=== PATIENT | female | born 2000 | race Caucasian/White ===

== ENCOUNTER → 2024-09-01 07:52 | Outpatient (REF) | payer BC, SELFPAY | LOC: PNTC 07:52 | PROVIDERS: ATTENDING PHYSICIAN Obstetrics & Gynecology | DX: Z36.0 Encounter for antenatal screening for chromosomal anomalies (principal); Z36.82 Encounter for antenatal screening for nuchal translucency | CPT/HCPCS: 76801; 76813 ==

== ENCOUNTER → 2024-09-22 07:04 | Outpatient (REF) | payer BC, SELFPAY | LOC: PNTC 07:04 | PROVIDERS: ATTENDING PHYSICIAN Obstetrics & Gynecology | DX: O99.612 Diseases of the digestive system complicating pregnancy, second trimester (principal) | CPT/HCPCS: 76805 ==

== ENCOUNTER → 2024-10-20 07:05 | Outpatient (REF) | payer BC, SELFPAY | LOC: PNTC 07:05 | PROVIDERS: ATTENDING PHYSICIAN Obstetrics & Gynecology | DX: K50.90 Crohn's disease, unspecified, without complications (principal) | CPT/HCPCS: 76811 ==

== ENCOUNTER → 2024-12-05 16:07 | Outpatient (REF) | payer BC, SELFPAY | LOC: PNTC 16:07 | PROVIDERS: ATTENDING PHYSICIAN Obstetrics & Gynecology | DX: O99.612 Diseases of the digestive system complicating pregnancy, second trimester (principal) | CPT/HCPCS: 76816 ==

== ENCOUNTER → 2025-01-02 15:58 | Outpatient (REF) | payer BC, SELFPAY | LOC: PNTC 15:58 | PROVIDERS: ATTENDING PHYSICIAN Obstetrics & Gynecology | DX: K50.019 Crohn's disease of small intestine with unspecified complications (principal); O35.5XX0 Maternal care for (suspected) damage to fetus by drugs, not applicable or unspecified | CPT/HCPCS: 76816 ==

== ENCOUNTER → 2025-01-30 16:18 | Outpatient (REF) | payer BC, SELFPAY | LOC: PNTC 16:18 | PROVIDERS: ATTENDING PHYSICIAN Obstetrics & Gynecology | DX: K50.00 Crohn's disease of small intestine without complications (principal); O99.619 Diseases of the digestive system complicating pregnancy, unspecified trimester | CPT/HCPCS: 76816 ==

== ENCOUNTER → 2025-02-27 16:12 | Outpatient (REF) | payer BC, SELFPAY | LOC: PNTC 16:12 | PROVIDERS: ATTENDING PHYSICIAN Student in an Organized Health Care Education/Training Program | DX: K50.00 Crohn's disease of small intestine without complications (principal) | CPT/HCPCS: 76816 ==

== ENCOUNTER 2025-03-01 18:27 | Inpatient (IN) | payer BC, SELFPAY ==
[2025-03-01 17:27] VITALS: BP 151/95; BMI 27.1
[2025-03-01 18:09] LABS: % Basophils 0.4 % (0-2); % Eosinophils 0.7 % (0-6); % Immature Granulocytes 0.9 % (0-0.5); % Lymphocytes 25.2 % (20.5-51.1); % Monocytes 9.4 % (1.7-9.3); % Neutrophils 63.4 % (42.2-75.2); Absolute Eosinophils 0.1 10^3/uL (0-0.7); Absolute Immature Granulocytes 0.1 10^3/uL (0-0.05); Absolute Lymphocytes 2.9 10^3/uL (1.2-3.4); Absolute Monocytes 1.1 10^3/uL (0.1-0.6); Absolute Neutrophils 7.2 10^3/uL (1.4-6.5); Hematocrit 35.8 % (37.0-47.0); Hemoglobin 11.9 g/dL (12.0-16.0); Mean Corp Hgb Conc. 33.2 g/dL (33.0-37.0); Mean Corpuscular Hgb 30.1 pg (27.0-31.0); Mean Corpuscular Volume 90.6 fL (81.0-99.0); Mean Platelet Volume 12.7 fL (7.4-10.4); Nucleated Red Blood Cells % 0 %; Platelet Count 161 10^3/uL (130-400); Red Blood Cell Count 3.95 10^6/uL (4.20-5.40); White Blood Cell Count 11.4 10^3/uL (4.8-10.8)
[2025-03-01 18:25] LABS: ALT (SGPT) 18 U/L (0-35); AST (SGOT) 27 U/L (14-36); Albumin 3.7 g/dl (3.5-5.0); Alkaline Phosphatase 203 U/L (38-126); Blood Urea Nitrogen 9 mg/dl (7-17); Calcium 9.5 mg/dl (8.4-10.2); Carbon Dioxide 22 mmol/L (22-30); Chloride 111 mmol/L (98-107); Estimated Creatinine Clearance > 125 ml/min; Glucose 69 mg/dl (70-99); Potassium 4.1 mmol/L (3.5-5.1); Sodium 137 mmol/L (135-145); Total Bilirubin 0.4 mg/dl (0.2-1.3); eGFR > 60.00
[2025-03-01 18:34] LABS: Urine Albumin 4+ (Neg - Trace); Urine Bilirubin Negative (Negative); Urine Character Clear (Clear); Urine Color Yellow; Urine Glucose Negative (Negative); Urine Ketone Negative (Negative); Urine Leukocyte Negative (Negative); Urine Nitrite Negative (Negative); Urine Occult Blood 1+ (Negative); Urine Urobilinogen Negative (Neg - 1+)
[2025-03-01 18:47] LABS: Urine Bacteria Many (Negative); Urine Squamous Cell 16-20 /LPF (Few)
[2025-03-01 19:49] LABS: Protein/creatinine Ratio 9.8; Urine Protein 1490 mg/dl
[2025-03-01] MEDS: TRANDATE 200 MG PO (20:54)
[2025-03-01] MEDS: CYTOTEC 50 MICROGRAM PO (20:55)
[2025-03-01] MEDS: PRENATAL PLUS PO (23:08)
[2025-03-02] MEDS: CYTOTEC 50 MICROGRAM PO (00:58)
[2025-03-02] MEDS: LR 1000 IV ×2 (02:50→09:27)
[2025-03-02 05:39] LABS: Hematocrit 32.3 % (37.0-47.0); Hemoglobin 10.8 g/dL (12.0-16.0); Mean Corp Hgb Conc. 33.4 g/dL (33.0-37.0); Mean Corpuscular Hgb 30.6 pg (27.0-31.0); Mean Corpuscular Volume 91.5 fL (81.0-99.0); Mean Platelet Volume 12.8 fL (7.4-10.4); Platelet Count 141 10^3/uL (130-400); Red Blood Cell Count 3.53 10^6/uL (4.20-5.40); Red Cell Dist. Width 13.2 % (11.5-14.5); White Blood Cell Count 10.8 10^3/uL (4.8-10.8)
[2025-03-02 06:03] LABS: ALT (SGPT) 16 U/L (0-35); AST (SGOT) 23 U/L (14-36); Albumin 3.3 g/dl (3.5-5.0); Alkaline Phosphatase 177 U/L (38-126); Blood Urea Nitrogen 9 mg/dl (7-17); Calcium 8.8 mg/dl (8.4-10.2); Carbon Dioxide 20 mmol/L (22-30); Chloride 110 mmol/L (98-107); Estimated Creatinine Clearance 115 ml/min; Glucose 77 mg/dl (70-99); Sodium 136 mmol/L (135-145); Total Bilirubin 0.3 mg/dl (0.2-1.3); Total Protein 6.3 g/dl (6.3-8.2); eGFR > 60.00
[2025-03-02] MEDS: CYTOTEC PO ×3 (06:28→16:05)
[2025-03-02] MEDS: TRANDATE 200 MG PO ×2 (07:41→19:49)
[2025-03-02] MEDS: PRENATAL PLUS 1 TABLET PO (07:41)
[2025-03-02] MEDS: ZOFRAN 4 MG IV (09:27)
[2025-03-02] MEDS: PITOCIN 30 UNITS/NSS 500 ML IV ×2 (09:28→20:25)
[2025-03-02] MEDS: ZYRTEC 10 MG PO (10:16)
[2025-03-02] MEDS: SUBLIMAZE 100 MCG EPIDURAL (16:14)
[2025-03-02] MEDS: FENTANYL/BUPIVACAINE 100 EPIDURAL (16:14)
[2025-03-03] MEDS: TYLENOL 650 MG PO ×3 (00:59→17:01)
[2025-03-03 03:36] LABS: Hematocrit 26.1 % (37.0-47.0); Hemoglobin 8.8 g/dL (12.0-16.0)
[2025-03-03] MEDS: SENOKOT-S 1 TABLET PO (08:25)
[2025-03-03] MEDS: TRANDATE 200 MG PO ×2 (08:25→20:19)
[2025-03-03] MEDS: FEOSOL 325 MG PO (08:25)
[2025-03-03] MEDS: PRENATAL PLUS 1 TABLET PO (08:26)
[2025-03-03 13:44] LABS: Syphilis/T. pallidum Ab Reflex Negative (Negative)
[2025-03-04] MEDS: TYLENOL 650 MG PO ×2 (00:22→08:03)
[2025-03-04] MEDS: PRENATAL PLUS 1 TABLET PO (08:03)
[2025-03-04] MEDS: TRANDATE 200 MG PO (08:03)
[2025-03-04] MEDS: SENOKOT-S 1 TABLET PO (08:04)
== END 2025-03-04 13:19 | disposition home or self-care (01) | DRG 807 ==
LOC: LDRP 18:27
PROVIDERS: Obstetrics & Gynecology; ADMITTING PHYSICIAN Obstetrics & Gynecology; FAMILY PHYSICIAN Nurse Practitioner Adult Health
PROC: 3E033VJ Introduction of Other Hormone into Peripheral Vein, Percutaneous Approach (ICD-10-PCS; 2025-03-01)
PROC: 10E0XZZ Delivery of Products of Conception, External Approach (ICD-10-PCS; 2025-03-02)
PROC: 0HQ9XZZ Repair Perineum Skin, External Approach (ICD-10-PCS; 2025-03-02)
PROC: 10907ZC Drainage of Amniotic Fluid, Therapeutic from Products of Conception, Via Natural or Artificial Opening (ICD-10-PCS; 2025-03-02)
DX: O14.04 Mild to moderate pre-eclampsia, complicating childbirth (principal); Z37.0 Single live birth; Z3A.39 39 weeks gestation of pregnancy; O70.0 First degree perineal laceration during delivery; O69.81X0 Labor and delivery complicated by cord around neck, without compression, not applicable or unspecified
CPT/HCPCS: 88307; 36415; 80053; 81003; 81015; 82570; 84156; 85014; 85018; 85025; 85027; 86780; 86850; 86900; 86901; 87086

== ENCOUNTER 2025-07-31 20:45 | Emergency (ER) | payer BC, SELFPAY ==
[2025-07-31 20:48] VITALS: BP 136/92
[2025-07-31 21:08] LABS: Hematocrit 39.0 % (37.0-47.0); Hemoglobin 12.5 g/dL (12.0-16.0); Mean Corp Hgb Conc. 32.1 g/dL (33.0-37.0); Mean Corpuscular Volume 84.2 fL (81.0-99.0); Nucleated Red Blood Cells % 0 %; Platelet Count 179 10^3/uL (130-400); Red Cell Dist. Width 14.6 % (11.5-14.5)
[2025-07-31 21:25] LABS: COVID-19 Antigen Negative (Negative)
[2025-07-31 21:31] LABS: HCG, Serum Qualitative Screen Negative
[2025-07-31 21:41] LABS: ALT (SGPT) 37 U/L (0-35); AST (SGOT) 34 U/L (14-36); Albumin 4.6 g/dl (3.5-5.0); Alkaline Phosphatase 93 U/L (38-126); Blood Urea Nitrogen 9 mg/dl (7-17); Calcium 8.8 mg/dl (8.4-10.2); Carbon Dioxide 25 mmol/L (22-30); Chloride 101 mmol/L (98-107); Glucose 102 mg/dl (70-99); Potassium 3.5 mmol/L (3.5-5.1); Sodium 136 mmol/L (135-145); Total Protein 7.6 g/dl (6.3-8.2); eGFR > 60.00
--- NOTE | 2025-07-31 22:42 | ED.GENMED ---
History of Present Illness
General
Chief Complaint: Cold/Flu/URI Symptoms
Source: patient
Time Seen by Provider: 07/31/25 22:02
History of Present Illness
History of Present Illness:
25-year-old female presents complaining of fever, chills, nausea, vomiting, congestion and facial pressure. Symptoms been present for the past few days. Patient has been taking Tylenol for her symptoms. Last dose was at 5 PM. Patient also
endorses a cough. She takes Humira for Crohn's disease. Patient was seen by her primary care provider and prescribed Augmentin today but she was unable to keep the antibiotic down. She denies any abdominal pain. She denies diarrhea. No recent
travel. Her significant other also has similar symptoms but to a lesser degree.
Phy Exam
Physical Exam
Physical Exam:
General: Awake, Alert, Oriented X3. Appears to feel somewhat unwell but in no distress and appears nontoxic
Vitals: Mildly tachycardic
Head: Atraumatic
Eyes: Pupils equal, EOMI
Throat: Airway intact, no exudates
Neck: Trachea midline
Lungs: Clear and equal b/l
Heart: Regular rate, no murmurs
Abd: Soft, Nontender, No pulsatile mass
Neuro: Nonfocal
Skin: Warm, dry, no rash
Extremities: pulses equal b/l, no edema
Sepsis
Sepsis Screening
Sepsis Assessment: Sepsis Ruled Out
Sepsis Screen
Sepsis Screen: Sepsis Ruled Out
Date: 08/01/25
Time: 01:24
Course
Orders/Labs/Results
Orders:
Orders
07/31/25 20:52
Test Result ONCE
07/31/25 20:59
CMP [Comprehensive Metabolic Panel] Urgent
COVID-19 Antigen Urgent
Source: Nasal Swab
Complete Blood Count/With Diff Urgent
HCG, Serum Qualitative Screen Urgent
Lactic Acid Urgent
Influenza A+B Rapid Molecular Urgent
ANGEL Source: Nasal Swab
Specimen Description:
07/31/25 22:35
0.9% Sodium Chloride 1000 ml [Nss] 1,000 ml IV BOLUS
Ondansetron Injectable [Zofran] 4 mg IV NOW STA
07/31/25 22:40
CR Chest - 2 Views Urgent
Comment:
Reason For Exam: fever, cough
07/31/25 22:47
Ketorolac [Toradol] 15 mg IV NOW STA
07/31/25 23:26
Acetaminophen [Tylenol] 650 mg PO NOW STA
08/01/25 00:11
Amoxicillin 875 mg/Clav 125 mg [Augmentin 875 mg/125 mg] 1 tablet PO NOW STA
Abnormal Lab Results
07/31/25
20:59
MCHC 32.1 L g/dL
(33.0-37.0)
RDW 14.6 H %
(11.5-14.5)
Absolute Monos (auto) 0.7 H 10^3/uL
(0.1-0.6)
Monocytes % 9.4 H %
(1.7-9.3)
Glucose 102 H mg/dl
(70-99)
ALT 37 H U/L
(0-35)
07/31/25 20:59
07/31/25 20:59
Vital Signs
Initial and Last Documented VS:
Initial Vital Signs
Temp Pulse Resp BP Pulse Ox
98.5 F 126 16 136/92 98
07/31/25 20:48 07/31/25 20:48 07/31/25 20:48 07/31/25 20:48 07/31/25 20:48
Last Documented Vital Signs
Temp Pulse Resp BP Pulse Ox
98.9 F 82 18 136/92 98
08/01/25 00:29 08/01/25 00:29 08/01/25 00:29 07/31/25 20:48 08/01/25 00:29
MDM/Problems Addressed
Differential Diagnosis Includes:
acute viral illness, bacterial sinusitis, pneumonia
MDM/Problems Addressed:
Patient presents with fever, facial/head congestion and fever. Labs here are reassuring. COVID and influenza test are negative. Chest x-ray reviewed by myself I do not see any obvious infiltrate. Patient was prescribed Augmentin for sinusitis
which I think is reasonable. She was given Zofran and IV fluids here and is feeling better. She is no longer nauseous. She tolerated dose of Augmentin here. Will discharge her with a prescription for Zofran and instructions to take the Augmentin
as prescribed.
*Radiology
Radiology exam reviewed: preliminary read by ED provider (No acute abnormalities on my review of the patient's chest x-ray)
*Pulse Oximetry
SaO2: 98
Oxygen Mode of Delivery: Room air
Patient hypoxic: no
*Critical Care Note
Total Time (30-74mins, 75-104mins- exclusive of procedures): Not Applicable
ED Attending Note
-
Portions of this chart may have been created with voice recognition software.� Occasional wrong word or��sound alike� substitutions may have occurred due to the inherent limitations of voice recognition software.
Discharge Plan
Departure
Patient Disposition: Home (Routine Discharge)
Date of Disposition: 08/01/25
Time of Disposition: 00:12
Patient with high blood pressure during this ER visit?: No
Condition: Good
Discharge Problem:
Acute sinusitis, Fever
Instructions: Fever, Adult (DC), Sinusitis in adults - ED (DC)
Prescriptions:
New
ondansetron 4 mg tablet,disintegrating
4 mg PO TID PRN (Reason: nausea and vomiting) Qty: 20 0RF
No Action
Humira 40 mg/0.8 mL Syringe Kit
40 mg SC Q2W
tablet
1 tab PO 1XD
ferrous sulfate [FeroSul] 325 mg (65 mg iron) Tablet
325 mg PO DAILY Qty: 0 0RF
hydrocortisone 2.5 % Cream
1 applic topical BID PRN (Reason: hemorrhoids) Qty: 0 0RF
labetalol 200 mg Tablet
200 mg PO BID Qty: 60 0RF
sennosides-docusate sodium 8.6-50 mg Tablet
1 tab PO DAILYPRN PRN (Reason: constipation) Qty: 0 0RF
ibuprofen 600 mg Tablet
600 mg PO Q6HPRN PRN (Reason: moderate pain/cramps) Qty: 0 0RF
acetaminophen 325 mg Tablet
650 mg PO Q4HPRN PRN (Reason: mild pain) Qty: 0 0RF
Referrals:
Margarita Perera CRNP [Family Provider, General]
Interventions
Interventions:
*Risk Screen - Suicide Last Done: 07/31/25 20:48
*General Assessment Last Done: 07/31/25 22:53
*Neglect/Abuse Screening Last Done: 07/31/25 20:48
*ED- Fall Risk Assessment Last Done: 07/31/25 22:53
*ED COVID-19 Vaccine History Last Done: 07/31/25 22:53
*ED Influenza Vaccine History Last Done: 07/31/25 22:53
*Nursing Disposition Last Done: 08/01/25 00:32
ED- Pulmonary Assessment Last Done: 07/31/25 23:00
Discharge Date and Time
Discharge Date/Time: 08/01/25 00:37
Print Language: ARABIC
[2025-07-31] MEDS: NSS 1000 IV (23:04)
[2025-07-31] MEDS: ZOFRAN 4 MG IV (23:04)
[2025-07-31] MEDS: TORADOL 15 MG IV (23:04)
[2025-07-31] MEDS: TYLENOL 650 MG PO (23:35)
[2025-08-01] MEDS: AUGMENTIN 875 MG/125 MG 1 TABLET PO (00:25)
== END 2025-08-01 00:37 | disposition home or self-care (01) ==
LOC: EMR 20:45
PROVIDERS: Emergency Medicine; EMERGENCY PHYSICIAN Emergency Medicine; FAMILY PHYSICIAN Nurse Practitioner Adult Health
DX: J01.90 Acute sinusitis, unspecified (principal); K50.90 Crohn's disease, unspecified, without complications
CPT/HCPCS: 99284; 96374; 96375; 96361; 71046; 80053; 83605; 84703; 85025; 87502; 87811

== ENCOUNTER 2025-08-11 06:28 | Day surgery (SDC) | payer BC, SELFPAY | END 2025-08-11 14:11 | disposition home or self-care (01) | LOC: GI 06:28 | PROVIDERS: ATTENDING PHYSICIAN Internal Medicine Gastroenterology | DX: K50.90 Crohn's disease, unspecified, without complications (principal); K64.9 Unspecified hemorrhoids; K50.00 Crohn's disease of small intestine without complications; Z98.0 Intestinal bypass and anastomosis status | CPT/HCPCS: 45380; 43239; 88305; 88342 ==